=== PATIENT | female | born 1945 | race Caucasian/White ===

== ENCOUNTER 2019-12-13 12:01 | Emergency (ER) | payer MEDICARE, OTHER ==
[2019-12-13 12:41] LABS: BILIRUBIN,URINE NEGATIVE (NEGATIVE); GLUCOSE, URINE (UA) NEGATIVE (NEGATIVE); KETONES,URINE (UA) 40 mg/dL (NEGATIVE); LEUKOCYTE ESTERASE, URINE NEGATIVE (NEGATIVE); NITRITE,URINE NEGATIVE (NEGATIVE); OCCULT BLOOD,URINE LARGE (NEGATIVE); PROTEIN,URINE 30 mg/dL (NEGATIVE); UROBILINOGEN,URINE 0.2 (NORMAL) E.U./dL (NORMAL)
[2019-12-13 12:44] LABS: CLARITY,URINE CLOUDY (CLEAR)
[2019-12-13 13:02] LABS: BACTERIA,URINE Moderate /HPF (None Seen); RBC,URINE TNTC /HPF (0-5); SQUAMOUS EPITHELIAL CELL,UR RARE Squamous (<= Few); YEAST,URINE PRESENT
[2019-12-13 13:37] LABS: BASOPHILS % (AUTO) 0.3 %; EOSINOPHILS % (AUTO) 0.1 %; HGB - HEMOGLOBIN 15.4 g/dL (12.0-16.0); LYMPHOCYTES # (AUTO) 0.8 10^3/uL (1.5-3.5); LYMPHOCYTES % (AUTO) 5.6 %; MEAN CORPUSCULAR HEMOGLOBIN 31.1 pg (27.0-31.0); MEAN CORPUSCULAR HGB CONC 34.5 g/dL (32.0-36.0); MEAN CORPUSCULAR VOLUME 90.3 fL (81.0-99.0); MEAN PLATELET VOLUME 9.9 fL (7.9-10.8); MONOCYTES # (AUTO) 0.3 10^3/uL (0.0-1.0); MONOCYTES % (AUTO) 2.3 %; NEUTROPHILS # (AUTO) 13.3 10^3/uL (1.5-6.6); NEUTROPHILS % (AUTO) 91.2 %; PLT - PLATELET COUNT 208 10^3/uL (130-450); RED BLOOD COUNT 4.95 10^6/uL (4.20-5.40); RED CELL DISTRIBUTION WIDTH 12.7 % (12.0-15.0); WHITE BLOOD COUNT 14.6 x10^3/uL (4.8-10.8)
[2019-12-13 13:50] LABS: ALBUMIN 4.5 g/dL (3.2-5.5); ALBUMIN/GLOBULIN RATIO 1.7 (1.0-2.2); BILIRUBIN,TOTAL 0.7 mg/dL (0.2-1.0); CALCIUM 9.3 mg/dL (8.5-10.3); CREATININE 0.8 mg/dL (0.4-1.0); TOTAL PROTEIN 7.1 g/dL (6.7-8.2)
[2019-12-13] MEDS ORDERED: KETOROLAC 30 MG/ML VIAL IVP STA (15:04)
[2019-12-13] MEDS ORDERED: ONDANSETRON 4 MG/2 ML VIAL IVP STA (15:04)
[2019-12-13] MEDS ORDERED: SODIUM CHLORIDE 0.9% 1,000 ML IV STA (15:04)
--- NOTE | 2019-12-13 15:11 | ED Physician Documentation ---
History of Present Illness - Stated complaint Stated Complaint: L SIDE PX - Chief complaint Chief Complaint: Abd Pain - History obtained from History obtained from: Patient - History of Present Illness Timing: Today Pain level max: 10 Pain level now: 6 - Additonal information Additional information: 74-year-old female presents to the emergency department left flank pain, this radiated to the left groin and to the left flank. She has had one kidney stone in the past and states that this feels similar. She is on hydrochlorothiazide for blood pressure. Visiting from [place]. Had nausea and vomiting as well. Had some diarrhea. No fever. No blood in the stool or vomit. Nothing makes it better or worse. Did not take anything for pain this morning. Review of Systems Constitutional: denies: Fever, Chills GI: denies: Vomiting Skin: denies: Rash Musculoskeletal: denies: Neck pain Neurologic: denies: Headache PD PAST MEDICAL HISTORY - Past Medical History Past Medical History: Yes Cardiovascular: Hypertension : Kidney stones - Present Medications Home Medications: Ambulatory Orders Medication Instructions Recorded Confirmed Cephalexin [Keflex] 500 mg PO Q6H #20 capsule 12/13/19 - Allergies Allergies/Adverse Reactions: Allergies Allergy/AdvReac Type Severity Reaction Status Date / Time trimipramine Allergy Hives Verified 12/13/19 12:12 - Living Situation Living Arrangement: reports: At home - Social History Does the pt smoke?: No Does the pt have substance abuse?: No - Family History Family history: reports: Non contributory PD ED PE NORMAL - Vitals Vital signs reviewed: Yes - General General: Alert and oriented X 3, No acute distress, Well developed/nourished - HEENT HEENT: PERRL, Moist mucous membranes - Neck Neck: Supple, no meningeal sign - Cardiac Cardiac: RRR, Strong equal pulses - Respiratory Respiratory: No respiratory distress, Clear bilaterally - Abdomen Abdomen: Soft, Non distended, Other (Mild left-sided abdominal pain, left lower quadrant. No peritoneal signs.) - Back Back: No CVA TTP, No spinal TTP - Derm Derm: Warm and dry - Extremities Extremities: No edema - Neuro Neuro: Alert and oriented X 3 - Psych Psych: Normal mood, Normal affect Results - Vitals Vitals: Vital Signs - 24 hr 12/13/19 12/13/19 12/13/19 12:08 12:11 16:00 Temperature 36.4 C L Heart Rate 63 74 81 Respiratory 17 16 18 Rate Blood Pressure 144/83 H 148/88 H 135/79 H O2 Saturation 97 97 95 12/13/19 18:00 Temperature Heart Rate 77 Respiratory 16 Rate Blood Pressure 132/75 H O2 Saturation 99 Oxygen O2 Source Room air - Labs Labs: Laboratory Tests 12/13/19 12/13/19 12/13/19 12:23 13:30 13:30 WBC 14.6 H RBC 4.95 Hgb 15.4 Hct 44.7 MCV 90.3 MCH 31.1 H MCHC 34.5 RDW 12.7 Plt Count 208 MPV 9.9 Neut # (Auto) 13.3 H Lymph # (Auto) 0.8 L [place] # (Auto) 0.3 Eos # (Auto) 0.0 Baso # (Auto) 0.0 Absolute Nucleated RBC 0.00 Nucleated RBC % 0.0 Sodium 138 Potassium 3.1 L Chloride 101 Carbon Dioxide 26 Anion Gap 11.0 BUN 18 Creatinine 0.8 Estimated GFR (MDRD) 71 L Glucose 161 H Calcium 9.3 Total Bilirubin 0.7 AST 29 ALT 28 Alkaline Phosphatase 70 Total Protein 7.1 Albumin 4.5 Globulin 2.6 Albumin/Globulin Ratio 1.7 Lipase 25 Urine Color LT RED Urine Clarity CLOUDY Urine pH 5.0 Ur Specific [place] >=1.030 H Urine Protein 30 H Urine Glucose (UA) NEGATIVE Urine Ketones 40 H Urine Occult Blood LARGE H Urine Nitrite NEGATIVE Urine Bilirubin NEGATIVE Urine Urobilinogen 0.2 (NORMAL) Ur Leukocyte Esterase NEGATIVE Urine RBC TNTC H Urine WBC 6-10 H Ur Squamous Epith Cells RARE Squamous Urine Bacteria Moderate H Urine Yeast PRESENT Ur Microscopic Review INDICATED Urine Culture Comments INDICATED PD MEDICAL DECISION MAKING - ED course Complexity details: reviewed results, re-evaluated patient, considered differential, d/w patient ED course: Pain resolved in the emergency department. Possible passed ureteral stone? We will treat for UTI as well. No evidence of diverticulitis. No evidence of abscess or perforation. No evidence of infected ureteral stone. Patient is well-appearing, nontoxic. No pyelonephritis. No sepsis. Patient counseled regarding signs and symptoms for which I believe and urgent re-evaluation would be necessary. Patient with good understanding of and agreement to plan and is comfortable going home at this time This document was made in part using voice recognition software. While efforts are made to proofread this document, sound alike and grammatical errors may occur. Diverticulosis is seen, without findings of active diverticulitis. Numerous nonobstructing kidney stones are seen. There is mild left-sided hydronephrosis. No definite distal stones are seen, although streak artifact from the left hip arthroplasty somewhat limits evaluation of this region. Incidental note is made of: Prominent simple appearing left renal cyst L2 vertebral body hemangioma Lower lumbar spine degenerative change Normal appendix Departure - Departure Disposition: 01 Home, Self Care Clinical Impression: Ureteral stone Urinary tract infection Qualifiers: Urinary tract infection type: acute cystitis Hematuria presence: with hematuria Qualified Code(s): N30.01 - Acute cystitis with hematuria Condition: Good Instructions: ED Stone Renal Passed, ED UTI Cystitis Female Follow-Up: Your,doctor in 1 week [Other] Prescriptions: Cephalexin [Keflex] 500 mg PO Q6H #20 capsule Comments: Take all antibiotics until gone. Return if you worsen. Drink plenty of water. You do have multiple small stones in your kidneys, it appears that one may have passed today. Discharge Date/Time: 12/13/19 18:57
[2019-12-13] MEDS ORDERED: IOVERSOL 320 100 ML VIAL IVP ONE (16:03)
--- NOTE | 2019-12-13 18:23 | CT Report ---
PROCEDURE: Abdomen/Pelvis WO INDICATIONS: LLQ pain, vomiting today TECHNIQUE: Noncontrast 5 mm thick sections acquired from the diaphragms to the symphysis. 5 mm coronal and sagi ttal reformats were then performed. For radiation dose reduction, the following was used: automated exposure control, adjustment of mA and/or kV according to patient size. COMPARISON: None. FINDINGS: Image quality: There is artifact associated with the metallic hardware. ABDOMEN: Lung bases: Lung bases are clear. Heart size is normal. Solid organs: Liver and spleen are normal in size. Gallbladder wall does not appear thickened. P ancreas is normal in contours. No adrenal nodules. The kidneys demonstrate normal size. Numerous nonobstructing renal stones are seen. The largest on th e right measures 2 to 3 mm and the largest on the left measures 5 mm. There is mild left-sided hydrou reter and hydronephrosis. Scrutiny is given to a stone within the distal left ureter and none can be seen. However, there is streak artifact from the left hip arthroplasty, which limits evaluation of th e distal ureters. There is a prominent simple appearing left renal cyst seen that measures 5.6 cm and measures water de nsity. Peritoneum and bowel: Unenhanced bowel loops demonstrate normal wall thickness and caliber. No free fluid or air. Diverticulosis can be seen, without [place] findings of active diverticulitis. A normal appendix is incidentally noted. Nodes and vessels: No retroperitoneal or mesenteric adenopathy by size criteria. Aorta and inferior vena cava are normal in caliber. Miscellaneous: No ventral hernias. PELVIS: Genitourinary: Bladder wall thickness is normal. The uterus demonstrates an unremarkable appearance for age. No adnexal masses are seen. Miscellaneous: No inguinal hernias or adenopathy. Bones: No suspicious bony lesions. Left hip arthroplasty hardware is seen, with associated streak a rtifact. No vertebral body compression fractures. Focal lower lumbar spine degenerative changes are seen. There is a benign vertebral body hemangioma incidentally noted within L2. IMPRESSION: Diverticulosis is seen, without findings of active diverticulitis. Numerous nonobstructing kidney stones are seen. There is mild left-sided hydronephrosis. No definite distal stones are seen, although streak artifact from the left hip arthroplasty somewhat limits evaluation of this region. Incidental note is made of: Prominent simple appearing left renal cyst L2 vertebral body hemangioma Lower lumbar spine degenerative change Normal appendix Reviewed by: Miko Quiroz MD on 12/13/2019 5:22 PM AKDT Approved by: Miko Quiroz MD on 12/13/2019 5:22 PM [email or web address] Station ID: [id number]
[2019-12-13] MEDS ORDERED: cefTRIAXone 1 GM VIAL IVP STA (18:26)
[2019-12-13] MEDS ORDERED: cefTRIAXone 1 GM VIAL IM STA (18:42)
[2019-12-13] MEDS ORDERED: LIDOCAINE 1% 2 ML VIAL MC ONE (18:42)
[2019-12-13 18:44] VITALS: BP 132/75
[2019-12-13] MEDS ORDERED: LIDOCAINE 1% 2 ML VIAL ONE (18:48)
== END 2019-12-13 18:57 | disposition home or self-care (01) ==
LOC: ED 12:01
DX: N13.2 Hydronephrosis with renal and ureteral calculous obstruction (principal); N30.01 Acute cystitis with hematuria; N28.1 Cyst of kidney, acquired; I10 Essential (primary) hypertension; K57.30 Diverticulosis of large intestine without perforation or abscess without bleeding; D18.09 Hemangioma of other sites; M51.36 Other intervertebral disc degeneration, lumbar region
CPT/HCPCS: 36415; 74176; 80053; 81001; 81003; 83690; 85025; 87086; 96361; 96374; 96375; 99284